=== PATIENT | male | born 1985 | race Caucasian/White ===

== ENCOUNTER → 2017-02-11 | Outpatient (CLI) | payer OTHER ==
[2017-02-11 06:58] LABS: Basophils # (A) 0.1 k/uL (0-0.2); Basophils % (A) 1 %; CHCM 33.6; Eosinophils # (A) 0.3 k/uL (0-0.7); Eosinophils % (A) 4 %; HCT 54.5 % (39.0-53.0); HDW 2.37; HGB 17.4 gm/dL (13.0-17.5); Luc # (Auto) 0.15; Luc % (Auto) 2; Lymphocytes # (A) 2.2 k/uL (1.0-4.8); Lymphocytes % (A) 29 %; MCH 29.7 pg (25.0-35.0); MCV 92.6 fL (80.0-100.0); Mean Platelet Volume 7.2; Monocytes # (A) 0.5 k/uL (0-1.0); Monocytes % (A) 7 %; Neutrophils # (A) 4.4 k/uL (1.3-7.7); Neutrophils % (A) 58 %; RBC 5.88 m/uL (4.30-5.90); RDW 14.5 % (11.5-15.5); WBC 7.6 k/uL (3.8-10.6); WBC (Perox) 7.68
[2017-02-11 07:13] LABS: ALT 87 U/L (21-72); AST 39 U/L (17-59); Alkaline Phosphatase 82 U/L (38-126); Anion Gap 10 mmol/L; Blood Urea Nitrogen 12 mg/dL (9-20); Calcium 9.8 mg/dL (8.4-10.2); Carbon Dioxide 31 mmol/L (22-30); Chloride 101 mmol/L (98-107); Cholesterol 246 mg/dL (<200); Glucose 96 mg/dL (74-99); HDL Cholesterol 33 mg/dL (40-60); Non-African American GFR(MDRD) >60 (>60 ml/min/1.73 sqM); Potassium 4.9 mmol/L (3.5-5.1); Sodium 142 mmol/L (137-145); Total Bilirubin 0.8 mg/dL (0.2-1.3); Total Protein 7.3 g/dL (6.3-8.2)
== END | disposition home or self-care (01) ==
LOC: LABWHC1 06:41
PROVIDERS: ATTEND Nurse Practitioner Family
DX: Z13.220 Encounter for screening for lipoid disorders (principal); Z13.228 Encounter for screening for other metabolic disorders; Z13.0 Encounter for screening for diseases of the blood and blood-forming organs and certain disorders involving the immune mechanism
CPT/HCPCS: 36415; 80053; 80061; 85025

== ENCOUNTER → 2018-03-25 | Outpatient (CLI) | payer OTHER ==
--- NOTE | 2018-03-25 11:45 | NM ---
EXAMINATION TYPE: NM stress cardiolite complete DATE OF EXAM: 03/25/2018 COMPARISON: NONE HISTORY: History of tobacco use, hypertension, and family history of coronary artery disease presents with chest pain. TECHNIQUE: After the intravenous administration of 10.29 mCi Tc 99m Sestamibi - Rest images obtained 45 minutes post injection. The patient exercised using a RENEE protocol and 1 minute prior to peak exercise was injected with 26.6 mCi Tc 99m Sestamibi - Stress images obtained 10 minutes post inject ion. FINDINGS: Targeted heart rate was not achieved during performance of the study. It was nearly achieved. No ches t pain noted during stress portion of study. Review of stress and rest SPECT images demonstrates no d istinct perfusion abnormality. Gated analysis shows normal wall motion with an estimated left ventri cular ejection fraction of 67 %. IMPRESSION: Slightly suboptimal study and targeted heart rate was not achieved, no convincing scintig raphic evidence for reversible ischemia
--- NOTE | 2018-03-26 08:49 | ECHOF ---
Referral Reason:R07.89 chest pain, I10 high blood pressure MEASUREMENTS -------- HEIGHT: 167.6 cm WEIGHT: 113.4 kg BP: IVSd: 1.8 cm (0.6 - 1.1) LVIDd: 2.7 cm (3.9 - 5.3) LVPWd: 1.8 cm (0.6 - 1.1) IVSs: 2.1 cm LVIDs: 1.6 cm LVPWs: 1.8 cm RVIDd: 3.2 cm (< 3.3) LAESV Index (A-L): 16.87 ml/m Ao Diam: 3.0 cm (2.0 - 3.7) LA Diam: 3.5 cm (2.7 - 3.8) AV Cusp: 2.2 cm (1.5 - 2.6) EPSS: 0.5 cm MV E Dani: 0.89 m/s MV DecT: 244 ms MV A Dani: 0.57 m/s MV E/A Ratio: 1.55 RAP: 5.00 mmHg RVSP: 10.82 mmHg MV EF SLOPE: 147.67 mm/s (70 - 150) MV EXCURSION: 9.72 mm (> 18.000) FINDINGS -------- Sinus rhythm. This was a technically good study. The left ventricular size is normal. There is severe concentric left ventricular hypertrophy. Ove rall left ventricular systolic function is normal with, an EF between 55 - 60 %. The right ventricle is normal in size. Normal LA size by volume 22+/-6 ml/m2. The right atrium is normal in size. Aortic valve is trileaflet and is mildly thickened. The mitral valve leaflets are mildly thickened. There is trace mitral regurgitation. Trace tricuspid regurgitation present. The right ventricular systolic pressure, as measured by Dopp ler, is 10.82mmHg. Pulmonic valve appears structurally normal. The aortic root size is normal. Normal inferior vena cava with normal inspiratory collapse consistent with estimated right atrial pre ssure of 5 mmHg. The pericardium is normal. CONCLUSIONS -------- 1. Sinus rhythm. 2. This was a technically good study. 3. The left ventricular size is normal. 4. There is severe concentric left ventricular hypertrophy. 5. Overall left ventricular systolic function is normal with, an EF between 55 - 60 %. 6. The right ventricle is normal in size. 7. Normal LA size by volume 22+/-6 ml/m2. 8. The right atrium is normal in size. 9. Aortic valve is trileaflet and is mildly thickened. 10. The mitral valve leaflets are mildly thickened. 11. There is trace mitral regurgitation. 12. Trace tricuspid regurgitation present. 13. The right ventricular systolic pressure, as measured by Doppler, is 10.82mmHg. 14. Pulmonic valve appears structurally normal. 15. The aortic root size is normal. 16. Normal inferior vena cava with normal inspiratory collapse consistent with estimated right atrial pressure of 5 mmHg. 17. The pericardium is normal. REAL ESTATE INVESTMENT ANALYST: Mariama Hilario RDCS
--- NOTE | 2018-03-26 10:22 | EST ---
EXERCISE STRESS AGE: 32 SEX: M HT: 5'6" WT: 250 PROTOCOL: Cardiolite Brady Stress Test STAGE: III DURATION OF EXERCISE: 11:00 HEART RATE REST: 69 BLOOD PRESSURE REST: 140/77 MAXIMUM HEART RATE ACHIEVED: 161 MAXIMUM BLOOD PRESSURE: 207/56 85% MPHR: 162 100% MPHR: 190 METS: 10.3 INDICATIONS: Chest pain. CLINICAL INFORMATION: Baseline heart rate 69 beats per minute. Baseline blood pressure 140/77 mmHg. Baseline 12-lead ECG showed normal sinus rhythm with normal cardiac intervals, normal ST segments. Patient exercised on a Brady protocol for 11 minutes achieving a peak heart rate of 161 beats per minute, which is 84% of his predicted maximal heart rate for age. Hypertensive response to exercise was noted. Peak blood pressure 207/56 mmHg. No chest pain. There was no ECG evidence for ischemia. No arrhythmias noted. Nuclear portion will be reported separately. MMODL / IJN: [id number] /
== END | disposition home or self-care (01) ==
LOC: RADNMMAIN 08:38
PROVIDERS: ATTEND Family Medicine
DX: I08.0 Rheumatic disorders of both mitral and aortic valves (principal); R94.39 Abnormal result of other cardiovascular function study; I10 Essential (primary) hypertension; R07.89 Other chest pain
CPT/HCPCS: 93017; 93306; 78452; A9500

== ENCOUNTER → 2018-12-06 | Outpatient (CLI) | payer BC ==
[2018-12-06 07:08] LABS: Basophils # (A) 0.1 k/uL (0-0.2); Basophils % (A) 1 %; Eosinophils # (A) 0.3 k/uL (0-0.7); Eosinophils % (A) 4 %; HGB 17.3 gm/dL (13.0-17.5); Lymphocytes # (A) 2.4 k/uL (1.0-4.8); Lymphocytes % (A) 29 %; MCHC 34.5 g/dL (31.0-37.0); Mean Platelet Volume 6.3; Monocytes # (A) 0.5 k/uL (0-1.0); Monocytes % (A) 6 %; Neutrophils # (A) 4.8 k/uL (1.3-7.7); Neutrophils % (A) 58 %; Platelet Count 303 k/uL (150-450); RBC 5.56 m/uL (4.30-5.90); RDW 12.3 % (11.5-15.5); WBC 8.4 k/uL (3.8-10.6)
[2018-12-06 12:04] LABS: African American GFR (CKD) 115.7 (60.0-200.0); Albumin 4.6 g/dL (3.80-4.90); Albumin/Globulin Ratio 2.3 (1.60-3.17); Anion Gap 7.5 mmol/L (4.00-12.00); Bilirubin, Conjugated 0.2 mg/dL (0.20-0.40); Bilirubin,Unconjugated 0.4 mg/dL; Calcium 9.8 mg/dL (8.7-10.3); Carbon Dioxide 28.5 mmol/L (21.6-31.8); Chol/HDL Ratio 7.48; LDL Cholesterol,Calculated 180.8 mg/dL (0.0-131.0); Potassium 4.4 mmol/L (3.5-5.5); Total Bilirubin 0.6 mg/dL (0.3-1.2); Total Protein 6.6 g/dL (6.2-8.2); VLDL Calculation 33.2 mg/dL (5.00-40.00)
[2018-12-06 12:12] LABS: T4, Free (Free Thyroxine) 1.1 ng/dL (0.80-1.80)
== END | disposition home or self-care (01) ==
LOC: LABWHC1 06:45
PROVIDERS: ATTEND Nurse Practitioner Family
DX: Z00.00 Encounter for general adult medical examination without abnormal findings (principal)
CPT/HCPCS: 36415; 80053; 80061; 82248; 84439; 84443; 85025

== ENCOUNTER → 2020-01-08 | Outpatient (CLI) | payer BC | END | disposition home or self-care (01) | LOC: LABWHC1 12:34 | PROVIDERS: ATTEND Family Medicine | DX: R09.89 Other specified symptoms and signs involving the circulatory and respiratory systems (principal); Z20.828 Contact with and (suspected) exposure to other viral communicable diseases | CPT/HCPCS: U0003; C9803 ==

== ENCOUNTER 2021-11-19 05:14 | Emergency (ER) | payer BC ==
[2021-11-19 05:22] VITALS: RESP 18; TEMP 97.5
[2021-11-19] MEDS ORDERED: HYDROcodone/APAP 10-325MG 1 EACH TAB PO ONE (05:53)
--- NOTE | 2021-11-19 06:14 | XR ---
EXAMINATION TYPE: XR foot complete RT DATE OF EXAM: 11/19/2021 CLINICAL HISTORY: Pain after stepped on nail injury TECHNIQUE: Frontal, lateral, and oblique images of the right foot are obtained. COMPARISON: None FINDINGS: There is no acute fracture/dislocation evident in the right foot. The joint spaces in the right foot appear within normal limits. Some flexion in the toes is present. Mild subcutaneous edema along the plantar surface without metallic soft tissue foreign body identified. Focal soft tissue sw elling near the fifth metatarsophalangeal joint is noted. IMPRESSION: As above.
[2021-11-19] MEDS ORDERED: DIPH,PERTUS(ACELL)TETVAC-LF 0.5 ML VIAL IM ONE (06:39)
--- NOTE | 2021-11-19 06:50 | ED ---
Lower Extremity Injury HPI - General Chief Complaint: Extremity Injury, Lower Stated Complaint: foot pain Time Seen by Provider: 11/19/21 05:20 Source: patient Mode of arrival: ambulatory - History of Present Illness Initial Comments: 36-year-old male presents emergency department with right foot pain. Patient states that he stepped on a nail on Wednesday. Tetanus is not up-to-date. Patient was placed on Keflex by his employer. He has not had any increased redness or pustular drainage from the site. Last night the patient wore a pair of work boots that was causing him discomfort. He took a dose of Motrin and went to bed. Reports that the pain increased overnight. Located on the lateral aspect of the right foot. Does have a history of gout however denies any pain in his toes. No warmth or swelling. No calf pain. Denies any known trauma. No fevers. No other alleviating, precipitating laughing factors - Related Data Previous Rx's Medication Instructions Recorded HYDROcodone/APAP 10-325MG [Goldsmith 1 tab PO Q6H PRN #12 tab 11/19/21 10-325] Allergies Allergy/AdvReac Type Severity Reaction Status Date / Time No Known Allergies Allergy Verified 11/19/21 05:21 Review of Systems ROS Statement: Those systems with pertinent positive or pertinent negative responses have been documented in the HPI. ROS Other: All systems not noted in ROS Statement are negative. Past Medical History Past Medical History: Hypertension Past Surgical History: No Surgical Hx Reported Smoking Status: Current every day smoker Past Alcohol Use History: Daily Past Drug Use History: None Reported General Exam General appearance: alert, in no apparent distress Extremities exam: Present: other (puncture wound plantar aspect right foot - scabbed over. no flutuance. no pustular drainage. no erythema or edema. tenderness to the lateral aspect of right foot. 2+ DP and PT pulses. intact sensation) Skin exam: Present: warm, dry, intact, normal color. Absent: rash Course Vital Signs 11/19/21 11/19/21 05:17 07:05 Temperature 97.5 F L Pulse Rate 64 59 L Respiratory 18 18 Rate Blood Pressure 160/96 154/90 O2 Sat by Pulse 98 Oximetry Medical Decision Making - Medical Decision Making Upon arrival patient is placed into room 6. Thorough history and physical exam was performed. Patient's tetanus is updated. No signs of infection. X-rays performed which demonstrates some edema of the soft tissues. I discussed diagnosis and treatment options. Patient will be discharged home on Goldsmith. Instructed to alternate taking this with Motrin. Follow up with the fish receiver for further evaluation return for any new or worsening symptoms. Patient was agreeable and discharged home in stable condition Disposition Clinical Impression: Foot pain, right, Puncture wound Disposition: HOME SELF-CARE Condition: Stable Instructions (If sedation given, give patient instructions): Arthralgia (ED) Additional Instructions: Alternate taking Motrin 600 mg with the Goldsmith every 4 hours. Follow-up with fish receiver for further evaluation and return for any new or worsening symptoms Prescriptions: HYDROcodone/APAP 10-325MG [Goldsmith 10-325] 1 tab PO Q6H PRN #12 tab PRN Reason: pain Is patient prescribed a controlled substance at d/c from ED?: Yes When asked, does pt state using other controlled substances?: No If prescribed controlled substance>3 days was MAPS reviewed?: Prescribed <3 Days If opioid is for acute pain is fill amount 7 days or less?: Yes If Rx opioid, was Start Talking consent form obtained?: Yes Referrals: Pacheco Rosas Jr, DO [Primary Care Provider] - 1-2 days Kurt Winchester DPM [Doctor of Osteopathic Medicine] - 1-2 days Time of Disposition: 06:49
[2021-11-19 07:06] VITALS: BP 154/90; PULSE 59
== END 2021-11-19 07:05 | disposition home or self-care (01) ==
LOC: EC 05:14
DX: S91.331A Puncture wound without foreign body, right foot, initial encounter (principal); I10 Essential (primary) hypertension; F17.200 Nicotine dependence, unspecified, uncomplicated; Z23 Encounter for immunization
CPT/HCPCS: 90471; 90715; 99283